=== PATIENT | female | born 1960 | race Caucasian/White ===

== ENCOUNTER 2017-02-11 13:36 | Emergency (ER) | payer OTHER | END 2017-02-11 18:22 | disposition home or self-care (01) | LOC: FER 13:36 | DX: S16.1XXA Strain of muscle, fascia and tendon at neck level, initial encounter (principal); M47.812 Spondylosis without myelopathy or radiculopathy, cervical region; M47.816 Spondylosis without myelopathy or radiculopathy, lumbar region; M54.6 Pain in thoracic spine; I50.9 Heart failure, unspecified; W10.9XXA Fall (on) (from) unspecified stairs and steps, initial encounter; Y92.009 Unspecified place in unspecified non-institutional (private) residence as the place of occurrence of the external cause | CPT/HCPCS: 72125; 72128; 72131; 72170 ==

== ENCOUNTER 2022-05-01 18:22 | Day surgery (SDCO) | payer MEDICARE ==
[~2022-05-01] VITALS: Ht 148.6 cm; Wt 71.2 kg
[2022-05-01 20:11] LABS: BASOPHIL 0.1 % (0-2); EOSINOPHIL 0 % (0-5); HCT 34.3 % (37.0-47.0); HGB 10.8 g/dl (12.5-16.0); LYMPHOCYTE 8.7 % (15-48); MCH 25.1 pg (25.0-31.0); MCHC 31.5 g/dL (32.0-36.0); MCV 79.8 fL (78.0-100.0); MONOCYTE 4.4 % (0-12); MPV 9.3 fL (6.0-9.5); NEUTROPHIL 86.2 % (41-80); NRBC 0.1; PLT 436 K/uL (150-400)
[2022-05-01 20:22] LABS: INR 1.77 (0.9-1.2)
[2022-05-01 20:35] LABS: ALBUMIN 3.4 g/dL (3.4-5.0); BILIRUBIN - TOTAL 0.5 mg/dL (0.2-1.0); BUN/CREAT RATIO (CALC) 17.9 RATIO; CREATININE 0.84 mg/dL (0.51-0.95); GLOBULIN (CALCULATION) 2.7 g/dL; POTASSIUM 3.7 mmol/L (3.5-5.1); TOTAL PROTEIN 6.1 g/dL (6.4-8.2)
[2022-05-01 20:39] LABS: CORONAVIRUS 2019 SARS-COV-2 NEGATIVE (NEGATIVE); INFLUENZA A NAA NEGATIVE (NEGATIVE)
[2022-05-01 20:41] LABS: BILIRUBIN NEGATIVE (NEGATIVE); BLOOD NEGATIVE Ery/uL (NEGATIVE); CLARITY CLEAR (CLEAR); COLOR YELLOW (YELLOW); GLUCOSE (U) TRACE mg/dL (NORMAL); LEUKOCYTES NEGATIVE Leu/uL (NEGATIVE); NITRITE NEGATIVE (NEGATIVE); PROTEIN NEGATIVE (NEGATIVE); SPECIFIC GRAVITY 1.015 (1.001-1.030); UROBILINOGEN 0.2 mg/dL (0.2-1.0)
[2022-05-02] MEDS ORDERED: XANAX0.5 MG PO (02:04)
[2022-05-02] MEDS ORDERED: XANAX0.25 MG PO (02:04)
[2022-05-02] MEDS ORDERED: DALIRESP500 MCG PO (02:05)
[2022-05-02] MEDS ORDERED: METOPROLOL SUCC50 MG PO (02:05)
[2022-05-02] MEDS ORDERED: MEDROL 4MG DOSEP4 MG PO (02:06)
[2022-05-02] MEDS ORDERED: [UNRECOGNIZED DRUG - OTHER] INH (02:09)
[2022-05-02] MEDS ORDERED: TRAZODONE 100M100 MG PO (02:09)
[2022-05-02] MEDS ORDERED: VICODIN 10/3251 EACH PO (02:10)
[2022-05-02] MEDS ORDERED: PULMICORT0.5 MG/2 M NEB (02:10)
[2022-05-02] MEDS ORDERED: COZAAR25 MG PO (02:11)
[2022-05-02] MEDS ORDERED: GABAPENTIN800 MG PO (02:11)
[2022-05-02] MEDS ORDERED: AZELASTINE205.5 MCG/ (02:11)
[2022-05-02] MEDS ORDERED: XARELTO10 MG PO (02:12)
[2022-05-02] MEDS ORDERED: PROTONIX 40MG T40 MG PO (02:12)
[2022-05-02] MEDS ORDERED: CARAFATE1 GM PO (02:13)
[2022-05-02] MEDS ORDERED: PRAVACHOL20 MG PO (02:24)
[2022-05-02] MEDS ORDERED: CYCLOBENZAPRINE10 MG PO (02:25)
[2022-05-02] MEDS ORDERED: WELLBUTRIN XL150 MG PO (02:25)
--- NOTE | 2022-05-02 10:29 | NUR ---
05/02/22 Ms. Soriano lives alone. She report to be followed by [facility]. However, [facility] [place] reports to have discharged Ms. Soriano Apr 07 nikolai to noncompliance. They will not accept her back. - Ms. Soriano reports to have been approved for the Community Based Waiver program through [employer]. - She has home 02 @ 4 L, wc, rollator, 3in1 and cane. - Ms. Soriano reports to need a lung and heart transplant, although she reports not to be a candidate. She has requested Palliative Care. A referral was made to Palliative Care / [facility] [phone].
[2022-05-03 16:40] LABS: BASOPHIL 0.1 % (0-2); EOSINOPHIL 0 % (0-5); HCT 32.1 % (37.0-47.0); HGB 9.8 g/dl (12.5-16.0); LYMPHOCYTE 3.9 % (15-48); MCH 24.7 pg (25.0-31.0); MCHC 30.5 g/dL (32.0-36.0); MCV 80.9 fL (78.0-100.0); MONOCYTE 4.4 % (0-12); MPV 9.3 fL (6.0-9.5); NRBC 0; PLT 456 K/uL (150-400); RBC 3.97 M/uL (4.20-5.40); RDW 16.8 % (11.5-14.0); WBC 20.7 K/uL (4.0-10.5)
[2022-05-03 16:44] LABS: NEUTROPHIL 90.5 % (41-80)
[2022-05-03 17:00] LABS: BUN 12 mg/dL (7-18); BUN/CREAT RATIO (CALC) 14.5 RATIO; CHLORIDE 108 mmol/L (98-107); CO2 (BICARBONATE) 27 mmol/L (21-32); CREATININE 0.83 mg/dL (0.51-0.95); GLUCOSE 154 mg/dL (74-106)
[2022-05-03 17:01] LABS: C-REACTIVE PROTEIN < 0.20 mg/dL (<=0.90)
[2022-05-04 07:47] LABS: BASOPHIL 0.2 % (0-2); EOSINOPHIL 0 % (0-5); HCT 33.5 % (37.0-47.0); HGB 9.8 g/dl (12.5-16.0); MCH 24.2 pg (25.0-31.0); MCHC 29.3 g/dL (32.0-36.0); MCV 82.7 fL (78.0-100.0); MONOCYTE 11.9 % (0-12); MPV 10.4 fL (6.0-9.5); NEUTROPHIL 74.4 % (41-80); NRBC 0; PLT 460 K/uL (150-400); RBC 4.05 M/uL (4.20-5.40); RDW 17.2 % (11.5-14.0); WBC 21.3 K/uL (4.0-10.5)
[2022-05-04 08:11] LABS: ALBUMIN 2.9 g/dL (3.4-5.0); ALKALINE PHOSHATASE 56 U/L (46-116); ALT 25 U/L (14-59); AST 9 U/L (15-37); BILIRUBIN - TOTAL 0.2 mg/dL (0.2-1.0); BUN 14 mg/dL (7-18); BUN/CREAT RATIO (CALC) 16.3 RATIO; CHLORIDE 109 mmol/L (98-107); CO2 (BICARBONATE) 28 mmol/L (21-32); CREATININE 0.86 mg/dL (0.51-0.95); GLOBULIN (CALCULATION) 2.1 g/dL; GLUCOSE 132 mg/dL (74-106); POTASSIUM 3.2 mmol/L (3.5-5.1)
[2022-05-04 08:12] LABS: C-REACTIVE PROTEIN < 0.20 mg/dL (<=0.90)
[2022-05-04] MEDS ORDERED: LEVAQUIN750 MG PO (11:16)
[2022-05-04] MEDS ORDERED: METRONIDAZOLE500 MG PO (11:16)
== END 2022-05-04 12:35 | disposition home or self-care (01) ==
LOC: FER 18:22 → FMS 23:21
PROVIDERS: Internal Medicine; ADMIT Internal Medicine
DX: K52.9 Noninfective gastroenteritis and colitis, unspecified (principal); J44.1 Chronic obstructive pulmonary disease with (acute) exacerbation; I48.0 Paroxysmal atrial fibrillation; F17.210 Nicotine dependence, cigarettes, uncomplicated; J96.11 Chronic respiratory failure with hypoxia; G47.33 Obstructive sleep apnea (adult) (pediatric); K21.9 Gastro-esophageal reflux disease without esophagitis; G40.909 Epilepsy, unspecified, not intractable, without status epilepticus; I13.0 Hypertensive heart and chronic kidney disease with heart failure and stage 1 through stage 4 chronic kidney disease, or unspecified chronic kidney disease; E11.22 Type 2 diabetes mellitus with diabetic chronic kidney disease; N18.9 Chronic kidney disease, unspecified; I50.9 Heart failure, unspecified; E78.5 Hyperlipidemia, unspecified; M19.90 Unspecified osteoarthritis, unspecified site; Z66 Do not resuscitate; Z91.14 Patient's other noncompliance with medication regimen; Z79.01 Long term (current) use of anticoagulants; Z79.899 Other long term (current) drug therapy; Z88.0 Allergy status to penicillin; Z88.1 Allergy status to other antibiotic agents; Z88.2 Allergy status to sulfonamides; Z88.5 Allergy status to narcotic agent; Z88.6 Allergy status to analgesic agent; Z88.8 Allergy status to other drugs, medicaments and biological substances; Z91.013 Allergy to seafood; Z91.038 Other insect allergy status; Z90.5 Acquired absence of kidney; Z99.81 Dependence on supplemental oxygen; Z20.822 Contact with and (suspected) exposure to COVID-19
CPT/HCPCS: 36415; 71250; 80048; 80053; 81003; 83605; 83690; 83735; 83880; 84145; 84484; 85025; 85610; 85730; 86140; 93005; 94640; 94664; 94667; 94668; G0378; J1170; J1956; J2405; J2930; J3010; J7030; U0002